=== PATIENT | female | born 1975 | race Two or more races ===

== ENCOUNTER 2020-05-28 10:38 | Outpatient (CLI) | payer OTHER | END 2020-05-28 12:06 | disposition home or self-care (01) | LOC: RAD 10:38 | PROVIDERS: ATTEND Obstetrics & Gynecology | DX: Z12.31 Encounter for screening mammogram for malignant neoplasm of breast (principal); N91.2 Amenorrhea, unspecified; J45.30 Mild persistent asthma, uncomplicated; J30.1 Allergic rhinitis due to pollen; R05 Cough ==

== ENCOUNTER 2020-06-02 14:26 | Outpatient (CLI) | payer OTHER | END 2020-06-02 14:27 | disposition home or self-care (01) | LOC: SONOGRAMA 14:26 | PROVIDERS: ATTEND Surgery Plastic and Reconstructive Surgery | DX: N63.0 Unspecified lump in unspecified breast (principal) ==

== ENCOUNTER → 2020-06-02 15:58 | Outpatient (CLI) | payer OTHER | END | disposition home or self-care (01) | LOC: LAB | PROVIDERS: ATTEND Obstetrics & Gynecology | DX: N91.2 Amenorrhea, unspecified (principal) ==

== ENCOUNTER 2020-07-07 07:27 | Day surgery (SDC) | payer OTHER | END 2020-07-07 12:05 | disposition home or self-care (01) | LOC: AMB-ENDOS 07:27 | PROVIDERS: ATTEND Colon & Rectal Surgery | DX: D12.5 Benign neoplasm of sigmoid colon (principal); K64.8 Other hemorrhoids; Z20.822 Contact with and (suspected) exposure to COVID-19; Z12.11 Encounter for screening for malignant neoplasm of colon ==

== ENCOUNTER 2021-11-09 09:53 | Outpatient (CLI) | payer OTHER | END 2021-11-09 12:10 | disposition home or self-care (01) | LOC: TOM 09:53 | PROVIDERS: ATTEND Internal Medicine Pulmonary Disease | DX: U09.9 Post COVID-19 condition, unspecified (principal); R05.3 Chronic cough; R06.02 Shortness of breath; N64.4 Mastodynia; Z12.31 Encounter for screening mammogram for malignant neoplasm of breast ==